=== PATIENT | female | born 1955 | race Caucasian/White ===

== ENCOUNTER 2023-12-09 12:06 | Emergency (ER) | payer MEDICARE, OTHER, SELFPAY ==
[2023-12-09] VITALS (8 sets, daily range): BP systolic 105–137; BP diastolic 63–90; PULSE 62–81; BMI 26.7
[2023-12-09 13:29] LABS: % Basophils 1.4 % (0-2); % Eosinophils 8.4 % (0-6); % Immature Granulocytes 0.4 % (0-0.5); % Lymphocytes 35.1 % (20.5-51.1); % Monocytes 7.5 % (1.7-9.3); % Neutrophils 47.2 % (42.2-75.2); Absolute Basophils 0.1 10^3/uL (0-0.2); Absolute Eosinophils 0.8 10^3/uL (0-0.7); Absolute Lymphocytes 3.2 10^3/uL (1.2-3.4); Absolute Monocytes 0.7 10^3/uL (0.1-0.6); Absolute Neutrophils 4.4 10^3/uL (1.4-6.5); Hemoglobin 13.9 g/dL (12.0-16.0); Mean Corp Hgb Conc. 34.8 g/dL (33.0-37.0); Mean Corpuscular Hgb 30.5 pg (27.0-31.0); Mean Corpuscular Volume 87.7 fL (81.0-99.0); Nucleated Red Blood Cells % 0 %; Platelet Count 361 10^3/uL (130-400); Red Blood Cell Count 4.56 10^6/uL (4.20-5.40); Red Cell Dist. Width 13.7 % (11.5-14.5); White Blood Cell Count 9.2 10^3/uL (4.8-10.8)
[2023-12-09 13:41] LABS: ALT (SGPT) 14 U/L (0-35); AST (SGOT) 20 U/L (14-36); Alkaline Phosphatase 66 U/L (38-126); Blood Urea Nitrogen 22 mg/dl (7-17); Calcium 9.6 mg/dl (8.4-10.2); Carbon Dioxide 29 mmol/L (22-30); Chloride 99 mmol/L (98-107); Estimated Creatinine Clearance 66 ml/min; Glucose 96 mg/dl (70-99); Potassium 4.6 mmol/L (3.5-5.1); Sodium 135 mmol/L (135-145); Total Bilirubin 0.6 mg/dl (0.2-1.3); Total Protein 7.4 g/dl (6.3-8.2); eGFR > 60.00
[2023-12-09] MEDS: NSS 1000 IV (13:53)
--- NOTE | 2023-12-09 15:04 | ED.GENMED ---
History of Present Illness
General
Chief Complaint: Dizziness
Source: patient and spouse
Time Seen by Provider: 12/09/23 12:35
Travel History
Have you had any contact with someone who has COVID-19?: No
Do you have any symptoms of coronavirus? Fever > 100 degrees, chills, cough, shortness of breath, sore throat, loss of taste or smell, muscle aches, or headache?: No
History of Present Illness
History of Present Illness:
68-year-old female who presents feeling lightheaded. She states started about 3 days ago. She states she is not necessarily dizzy. She saw her doctor who suspected vertigo. However, she denies room spinning dizziness. The patient does state
that she was given meclizine which made her sleepy yesterday but did not do anything for her. She also admits that she has felt like she has had fluid in the right ear for several weeks. Her doctor did give her some nasal sprays. She is on
medications for asthma. She feels a fullness in her right ear. She denies true pain. No headache. No motor weakness. No difficulty walking. No sense of movement at all.
Past History
Past History
ED Past Medical History: Asthma and Other (anxiety)
ED Past Surgical History: None
Social History
Tobacco: Non-smoker
Alcohol: None
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
Phy Exam
Physical Exam
Physical Exam:
CONSTITUTIONAL Patient alert and oriented to person, place and time. Well-appearing. Vital signs reviewed.
HEAD atraumatic, normocephalic.
EYES eyelids normal to inspection, Pupils equally round and reactive to light, Extraocular muscles intact, Conjunctiva normal, Sclera normal.
ENT middle ear effusion, no redness, no retractions, no bulging.
NECK normal range of motion, Trachea midline, no jugular venous distention.
RESPIRATORY CHEST No respiratory distress noted, Chest expansion equal, Bilateral breath sounds clear.
CARDIOVASCULAR regular rate and rhythm, Heart sounds normal.
ABDOMEN abdomen nontender, Bowel sounds normal. No distention.
BACK normal inspection, no obvious deformities
UPPER EXTREMITY range of motion normal, Motor strength normal, no cyanosis, no edema.
LOWER EXTREMITY range of motion normal, Motor strength normal, no cyanosis, no edema.
NEURO Speech normal, No focal motor deficits, Sabina coma scale 15, Memory normal, Cranial Nerves intact to screening exam. Normal [id number]. No pronator drift
SKIN skin warm, dry, and normal in color.
PSYCHIATRIC patient oriented to person place and time, Normal affect.
Course
Orders/Labs/Results
Orders:
Orders
12/09/23 12:14
Electrocardiogram (*1) Urgent
Reason for Study: Vertigo / Dizzy
EKG- Treatment ONCE
12/09/23 12:58
Orthostatic VS- Treatment ONCE
12/09/23 13:20
Complete Blood Count/With Diff Urgent
Comprehensive Metabolic Panel Urgent
12/09/23 13:27
0.9% Sodium Chloride 1000 ml [Nss] 1,000 ml IV BOLUS
Abnormal Lab Results
12/09/23
13:20
Absolute Monos (auto) 0.7 H 10^3/uL
(0.1-0.6)
Absolute Eos (auto) 0.8 H 10^3/uL
(0-0.7)
Eosinophils % 8.4 H %
(0-6)
BUN 22 H mg/dl
(7-17)
12/09/23 13:20
12/09/23 13:20
Vital Signs
Initial and Last Documented VS:
Initial Vital Signs
Temp Pulse Resp BP Pulse Ox
98.7 F 69 16 134/90 98
12/09/23 12:12 12/09/23 12:12 12/09/23 12:12 12/09/23 12:12 12/09/23 12:12
Last Documented Vital Signs
Temp Pulse Resp BP Pulse Ox
98.7 F 74 10 115/83 96
12/09/23 12:12 12/09/23 13:22 12/09/23 13:22 12/09/23 13:22 12/09/23 13:22
MDM/Problems Addressed
MDM/Problems Addressed:
Lightheadedness, middle ear effusion
*Pulse Oximetry
Patient hypoxic: no
*EKG
Interpreted by ED Provider?: Yes
Interpretation: normal
Rate: normal
Rhythm: sinus
Coventry: normal axis
Interval: normal interval
QRS Pattern: normal QRS
Ischemia: no ischemia
*Design Verification Engineer Interpretation
Rate: normal
Interpretation: normal
Rhythm: sinus
*Critical Care Note
Total Time (30-74mins, 75-104mins- exclusive of procedures): Not Applicable
Data Reviewed
Source: patient and spouse
Further Testing Considered But Not Given:
Consider head CT but no focal deficits and symptoms of lightheadedness not vertigo. No clinical concern for posterior circulation stroke
ED Attending Note
-
Portions of this chart may have been created with voice recognition software.� Occasional wrong word or��sound alike� substitutions may have occurred due to the inherent limitations of voice recognition software.
Discharge Plan
Departure
Patient Disposition: Home (Routine Discharge)
Date of Disposition: 12/09/23
Time of Disposition: 15:10
Patient with high blood pressure during this ER visit?: No
Discharge Problem:
Light-headedness
Instructions: Dizziness, Nonvertigo, (DC)
Prescriptions:
New
prednisone 10 mg Tablet
See Rx Instructions .ROUTE .COMPLEX Qty: 30 0RF
Rx Instructions:
Take By Mouth:
40 mg daily x3 days, 30 mg daily x3 days,
20 mg daily x3 days, 10 mg daily x3 days.
No Action
Aspirin :
PRN PRN (Reason: pain)
Robitussin:
PRN PRN (Reason: cough)
Zpack
Patient Comments:
tomorrow is the last day
azithromycin 250 MG tablet
250 mg PO Daily Qty: 6 0RF
Rx Instructions:
500 mg daily 1, 250 mg days 2-5.
acetaminophen-codeine 1 TABLET tablet
1 tab PO Q4HPRN PRN (Reason: pain/cough) Qty: 12 0RF
albuterol sulfate [Proventil HFA] 90 MCG/PUFF HFA aerosol inhaler
1 puff inhalation Q4 Qty: 1 0RF
lorazepam 0.5 MG tablet
1 mg PO BID Qty: 4 0RF
albuterol sulfate [ProAir HFA] 90 mcg/actuation Hfa Aerosol Inhaler
2 puff INHALATION Q4HPRN PRN (Reason: shortness of breath) Qty: 8.5 0RF
prednisone 50 mg Tablet
50 mg PO DAILY Qty: 2 0RF
azithromycin 250 mg tablet
250 mg PO DAILY 4 Days Qty: 4 0RF
Referrals:
Anushka Smith CRNP [Family Provider] -
Esteban Marcum MD [Active] -
Activity Restrictions/Additional Instructions:
Please continue use of your current medications and nasal sprays. Please see your doctor or ENT in the next 1 week for follow-up and reevaluation. Return immediately for worsening symptoms difficulty walking, vision changes, motor weakness or any
other concerns.
Interventions
Interventions:
*Risk Screen - Suicide Last Done: 12/09/23 12:09
*Neglect/Abuse Screening Last Done: 12/09/23 12:13
ED- Fall Risk Assessment Last Done: 12/09/23 12:28
*ED COVID-19 Vaccine History Last Done: 12/09/23 12:09
ED- Neurological Assessment Last Done: 12/09/23 13:26
ED Swallowing Screen Last Done: 12/09/23 13:25
== END 2023-12-09 15:28 | disposition home or self-care (01) ==
LOC: EMR 12:06
PROVIDERS: EMERGENCY PHYSICIAN Emergency Medicine; FAMILY PHYSICIAN Nurse Practitioner Adult Health
DX: R42 Dizziness and giddiness (principal); F41.9 Anxiety disorder, unspecified; J45.909 Unspecified asthma, uncomplicated
CPT/HCPCS: 99284; 96360; 80053; 85025; 93005

== ENCOUNTER → 2024-02-13 13:53 | Outpatient (REF) | payer MEDICARE, OTHER, SELFPAY | LOC: RAD 13:53 | PROVIDERS: ATTENDING PHYSICIAN Nurse Practitioner Adult Health | DX: M54.32 Sciatica, left side (principal) | CPT/HCPCS: 72110 ==

== ENCOUNTER → 2024-09-07 10:35 | Outpatient (REF) | payer MEDICARE, OTHER, SELFPAY | LOC: WDC 10:35 | PROVIDERS: ATTENDING PHYSICIAN Obstetrics & Gynecology; FAMILY PHYSICIAN Nurse Practitioner Adult Health | DX: Z12.31 Encounter for screening mammogram for malignant neoplasm of breast (principal) | CPT/HCPCS: 77063; 77067 ==

== ENCOUNTER → 2025-01-23 12:45 | Outpatient (REF) | payer MEDICARE, OTHER, SELFPAY | LOC: WDC 12:45 | PROVIDERS: ATTENDING PHYSICIAN Obstetrics & Gynecology; FAMILY PHYSICIAN Nurse Practitioner Adult Health | DX: R92.2 Inconclusive mammogram (principal) | CPT/HCPCS: 76641 ==

== ENCOUNTER → 2025-08-27 09:01 | Outpatient (REF) | payer MEDICARE, OTHER, SELFPAY | LOC: WDC 09:01 | PROVIDERS: ATTENDING PHYSICIAN Obstetrics & Gynecology | DX: R92.8 Other abnormal and inconclusive findings on diagnostic imaging of breast (principal) | CPT/HCPCS: 76642 ==